=== PATIENT | male | born 1990 | race Caucasian/White ===

== ENCOUNTER 2018-05-26 12:54 | Emergency (ER) | payer MEDICAID ==
[2018-05-26 13:11] VITALS: BP 134/74
[2018-05-26] MEDS ORDERED: TETANUS/DIPHTHERIA/PERTUSSIS 0.5 ML SYRINGE IM ONE (14:22)
[2018-05-26] MEDS ORDERED: LIDOCAINE 2% 10 ML MDV SUBQ STA (14:55)
--- NOTE | 2018-05-26 15:15 | ED Physician Documentation ---
PD HPI SKIN - Stated complaint Stated Complaint: BIG TOE SWELLING - Chief complaint Chief Complaint: Wound - History obtained from History obtained from: Patient - History of Present Illness Timing - onset: How many days ago (5) Timing - duration: Days (5) Timing - details: Gradual onset Pain level max: 5 Pain level now: 4 Location: Other (R great toe) Quality / character: Painful, Swelling Improved by: Other (nothing) Worsened by (comment): COMMENT (walking) Associated symptoms: No: Fever, Myalgias, Joint pain, Headache, Facial swelling , Dyspnea, Abd pain, N/V/D, Urinary sx Contributing factors: No: Exposed to medication, Exposed to food, Exposed to soap / lotion, Exposed to Poison tio/oak, Insect bite /sting, Recent illness Similar symptoms before: Has not had sx before Recently seen: Not recently seen Review of Systems Constitutional: denies: Fever, Chills Skin: denies: Rash PD PAST MEDICAL HISTORY - Past Medical History Past Medical History: No - Past Surgical History Past Surgical History: No - Present Medications Home Medications: Ambulatory Orders Medication Instructions Recorded Confirmed Cephalexin [Keflex] 500 mg PO Q6H #28 capsule 05/26/18 Sulfamethox/Trimeth 800/160 1 each PO BID #14 tablet 05/26/18 [Bactrim Ds 800/160] - Allergies Allergies/Adverse Reactions: Allergies Allergy/AdvReac Type Severity Reaction Status Date / Time No Known Drug Allergies Allergy Verified 05/26/18 13:11 - Social History Does the pt smoke?: No Smoking Status: Never smoker - Immunizations Immunizations are current?: No Immunizations: TDAP >10years/unknown PD ED PE NORMAL - Vitals Vital signs reviewed: Yes - General General: Alert and oriented X 3, No acute distress - Derm Derm: Warm and dry - Extremities Extremities: Other (R great toe, swelling, erythema, fluctance over the plantar aspect of the R great toe.) - Neuro Neuro: Alert and oriented X 3 Results - Vitals Vitals: Oxygen O2 Source Room air - Labs Labs: Microbiology 05/26/18 15:10 Wound Culture - Final Abscess Beta Hemolytic Strep Group G Procedures - Abscess I&D (location) R great toe Preparation: Confirmed with ultrasound, Chlorhexadine, Alcohol, Lidocaine 2 % ( digital block.) Incision: Incised with scalpel, Purulent drainage Other: Pt tolerated well, Dressing applied, Antibiotic prescribed PD MEDICAL DECISION MAKING - ED course Complexity details: considered differential, d/w patient ED course: Patient is a 27-year-old male with a abscess to the right great toe. This was incised and drained. There is cellulitis as well and will place on antibiotics. Patient counseled regarding signs and symptoms for which I believe and urgent re-evaluation would be necessary. Patient with good understanding of and agreement to plan and is comfortable going home at this time This document was made in part using voice recognition software. While efforts are made to proofread this document, sound alike and grammatical errors may occur. - Sepsis Event Vital Signs: Oxygen O2 Source Room air Departure - Departure Disposition: Home, Self Care Clinical Impression: Abscess of great toe, right Condition: Good Instructions: ED Abscess IandD Follow-Up: your,doctor in 3 days for wound check [Other] Prescriptions: Cephalexin [Keflex] 500 mg PO Q6H #28 capsule Sulfamethox/Trimeth 800/160 [Bactrim Ds 800/160] 1 each PO BID #14 tablet Comments: Take all antibiotics until gone. Return if you worsen. You should follow-up with your doctor in 3 days for a wound check. You can use Motrin or Tylenol as needed for pain. Discharge Date/Time: 05/26/18 15:40
== END 2018-05-26 15:40 | disposition home or self-care (01) ==
LOC: ED 12:54
DX: L02.611 Cutaneous abscess of right foot (principal); L03.031 Cellulitis of right toe
CPT/HCPCS: 10060; 87070; 87205; 90471; 99283

== ENCOUNTER 2021-02-04 18:12 | Emergency (ER) | payer MEDICAID ==
[2021-02-04 18:23] VITALS: BP 164/97
[2021-02-04] MEDS ORDERED: IBUPROFEN 800 MG TABLET PO STA (18:42)
--- NOTE | 2021-02-04 18:44 | ED Physician Documentation ---
PD HPI BACK PAIN - Stated complaint Stated Complaint: BACK PX - Chief complaint Chief Complaint: Back Pain - History obtained from History obtained from: Patient - Additional information Additional information: 30-year-old gentleman who has a long history of back issues and spasms. Over the last 5 days after doing some heavy work around his property developed severe midline and right low thoracic back pain. It is actually somewhat better now with stretching. But it got to the point where he could not get out of bed for several days. He denies weakness, numbness, tingling, saddle anesthesia, incontinence, or fevers. Review of Systems Constitutional: denies: Fever, Chills Throat: reports: Reviewed and negative Cardiac: reports: Reviewed and negative Respiratory: reports: Reviewed and negative PD PAST MEDICAL HISTORY - Past Medical History Past Medical History: Yes Cardiovascular: None Respiratory: None Neuro: None Endocrine/Autoimmune: None GI: None : None HEENT: None Psych: None Musculoskeletal: Chronic back pain Derm: None - Past Surgical History Past Surgical History: No - Present Medications Home Medications: Ambulatory Orders Medication Instructions Recorded Confirmed Cyclobenzaprine [Flexeril] 10 mg PO TID PRN #20 tablet 02/04/21 HYDROcod/ACETAM 5/325 [[place] 5/325] 1 - 2 tab PO Q6H PRN #10 tablet 02/04/21 Ibuprofen [Motrin] 800 mg PO Q8H PRN #30 tablet 02/04/21 - Allergies Allergies/Adverse Reactions: Allergies Allergy/AdvReac Type Severity Reaction Status Date / Time No Known Drug Allergies Allergy Verified 02/04/21 18:18 - Social History Does the pt smoke?: No Smoking Status: Never smoker Does the pt drink ETOH?: Yes ETOH Use: Liquor Does the pt have substance abuse?: Yes Substance Use and Type: Marijuana - Immunizations Immunizations are current?: Yes Immunizations: TDAP >10years/unknown PD ED PE NORMAL - Vitals Vital signs reviewed: Yes - General General: Alert and oriented X 3, No acute distress - HEENT HEENT: PERRL, EOMI - Neck Neck: Supple, no meningeal sign, No bony TTP - Back Back: Other (Muscular tenderness of the low parathoracic spinal muscles on the right.) - Extremities Extremities: Other (The patient has equal and normal Achilles and patellar reflexes bilaterally. Normal sensation in all areas of the legs. Patient denies saddle anesthesia. Normal strength in flexion-extension at the ankles, knees, and flexion of the hips.) - Neuro Neuro: Alert and oriented X 3, Normal speech Results - Vitals Vitals: Vital Signs - 24 hr 02/04/21 18:19 Temperature 36.5 C Heart Rate 78 Respiratory 18 Rate Blood Pressure 164/97 H O2 Saturation 98 Oxygen O2 Source Room air PD MEDICAL DECISION MAKING - ED course ED course: This patient has seemingly uncomplicated musculoskeletal back pain. The patient has no "red flags." Specifically denies IV drug use, fevers, incontinence, saddle anesthesia. Spinal epidural abscess was considered, given that the patient has no fever, is not diabetic, has no spinal tenderness, does not use IV drugs, and has no bilateral neurologic symptoms, the diagnosis of spinal epidural abscess is considered exceedingly unlikely. Departure - Departure Disposition: 01 Home, Self Care Clinical Impression: Back pain Qualifiers: Back pain location: thoracic back pain Chronicity: acute Back pain laterality: right Qualified Code(s): M54.6 - Pain in thoracic spine Condition: Good Record reviewed to determine appropriate education?: Yes Instructions: ED Neck Back Pain General Prescriptions: Cyclobenzaprine [Flexeril] 10 mg PO TID PRN #20 tablet PRN Reason: Spasms Ibuprofen [Motrin] 800 mg PO Q8H PRN #30 tablet PRN Reason: PAIN &/OR FEVER HYDROcod/ACETAM 5/325 [[place] 5/325] 1 - 2 tab PO Q6H PRN #10 tablet PRN Reason: Pain Comments: Call your doctor to arrange a follow-up appointment, make the next available appointment. In the interim, return anytime if worse or if new symptoms develop.
== END 2021-02-04 19:00 | disposition home or self-care (01) ==
LOC: ED 18:12
DX: M54.6 Pain in thoracic spine (principal)
CPT/HCPCS: 99283; 99284; A9270

== ENCOUNTER 2021-02-16 11:37 | Emergency (ER) | payer MEDICAID ==
[2021-02-16 11:42] VITALS: BP 157/102
[2021-02-16] MEDS ORDERED: DEXAMETHASONE 10 MG/ML VIAL PO STA (12:36)
[2021-02-16] MEDS ORDERED: CHERRY SYRUP 10 ML UDC PO ONE (12:36)
[2021-02-16] MEDS ORDERED: KETOROLAC 60 MG/2 ML VIAL IM STA (12:36)
--- NOTE | 2021-02-16 12:51 | ED Physician Documentation ---
PD HPI BACK PAIN - Stated complaint Stated Complaint: BACK PX - Chief complaint Chief Complaint: Back Pain - History obtained from History obtained from: Patient - History of Present Illness Timing - onset: How many months ago (4) Timing - duration: Months Timing - details: Gradual onset, Still present, Waxing and waning Location: Lower, Right Quality: Pain, Spasm, Sharp, Similar to prior episodes Associated symptoms: No: Fever, Weakness, Numbness, Incontinent of urine, Unable to urinate, Hematuria, Incontinent of stool Improves with: Rest, Ice, Position, Meds Worsened by: Movement Similar symptoms before: Diagnosis (lumbar spasm) Recently seen: Not recently seen - Additional information Additional information: Previously well 30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 He has previously had physical therapy and had improvement with that about 10 years ago. He has been using ice, heat, stretching, ibuprofen, Flexeril, and [place]. He finds some improvement with his sleep using the Flexeril and he has not taken much of the [place]. Review of Systems Constitutional: denies: Fever Eyes: denies: Decreased vision Ears: denies: Ear pain Nose: denies: Congestion Throat: denies: Sore throat Cardiac: denies: Chest pain / pressure, Palpitations Respiratory: denies: Dyspnea, Cough GI: denies: Abdominal Pain, Nausea, Vomiting : denies: Dysuria, Frequency Skin: denies: Rash Musculoskeletal: reports: Back pain. denies: Neck pain, Extremity pain PD PAST MEDICAL HISTORY - Past Medical History Past Medical History: Yes Cardiovascular: None Respiratory: None Neuro: None Endocrine/Autoimmune: None GI: None : None HEENT: None Psych: None Musculoskeletal: Chronic back pain Derm: None - Past Surgical History Past Surgical History: No - Present Medications Home Medications: Ambulatory Orders Medication Instructions Recorded Confirmed Cyclobenzaprine [Flexeril] 10 mg PO TID PRN #20 tablet 02/04/21 02/16/21 HYDROcod/ACETAM 5/325 [[place] 5/325] 1 - 2 tab PO Q6H PRN #10 tablet 02/04/21 02/16/21 Ibuprofen [Motrin] 800 mg PO Q8H PRN #30 tablet 02/04/21 02/16/21 Cyclobenzaprine [Flexeril] 10 mg PO TID PRN #20 tablet 02/16/21 - Allergies Allergies/Adverse Reactions: Allergies Allergy/AdvReac Type Severity Reaction Status Date / Time No Known Drug Allergies Allergy Verified 02/16/21 11:41 - Social History Does the pt smoke?: No Smoking Status: Never smoker Does the pt drink ETOH?: Yes Does the pt have substance abuse?: Yes - Immunizations Immunizations are current?: Yes Immunizations: TDAP >10years/unknown - POLST Patient has POLST: No PD ED PE NORMAL - Vitals Vital signs reviewed: Yes (hypertensive) - General General: Alert and oriented X 3, No acute distress, Well developed/nourished - HEENT HEENT: Atraumatic, PERRL, EOMI - Neck Neck: Supple, no meningeal sign, No bony TTP - Respiratory Respiratory: No respiratory distress - Back Back: No CVA TTP, No spinal TTP, Other (There is tenderness to the paraspinous muscles of the lumbar spine on the right side. There is midline tenderness that is mild but present. ) - Derm Derm: Normal color, Warm and dry, No rash - Extremities Extremities: No deformity, No edema - Neuro Neuro: Alert and oriented X 3, manager publishing 2-12 intact, No motor deficit, No sensory deficit, Normal speech Eye Opening: Spontaneous Motor: Obeys Commands Verbal: Oriented GCS Score: 15 - Psych Psych: Normal mood, Normal affect Results - Vitals Vitals: Vital Signs - 24 hr 02/16/21 11:39 Temperature 36.2 C L Heart Rate 79 Respiratory 20 Rate Blood Pressure 157/102 H O2 Saturation 98 Oxygen O2 Source Room air PD MEDICAL DECISION MAKING - ED course Complexity details: reviewed old records, considered differential, d/w patient ED course: 30 y/o male with persistent spasms does not appear to be in distress and does not appear to have much trouble moving about. He is administered PO decadron and IM toradal and we will refill his flexeril and encourage him to stop the heating pack. He indicates he is drinking about a gallon a day of water. He is interested in physical therapy and wants a referral. He has a PMD that he will see in about 2 weeks. Departure - Departure Disposition: 01 Home, Self Care Clinical Impression: Spasm of back muscles Condition: Stable Instructions: ED Spasm Back No Trauma Follow-Up: Your, doctor [Other] Prescriptions: Cyclobenzaprine [Flexeril] 10 mg PO TID PRN #20 tablet PRN Reason: Spasms
== END 2021-02-16 13:35 | disposition home or self-care (01) ==
LOC: ED 11:37
DX: M62.830 Muscle spasm of back (principal)
CPT/HCPCS: 96372; 99283; 99284; A9270

== ENCOUNTER 2021-03-19 12:19 | Outpatient (CLI) | payer MEDICAID ==
--- NOTE | 2021-03-19 15:13 | XRAY Report ---
PROCEDURE: Lumbar Spine Complete INDICATIONS: CHRONIC LOW BACK PX TECHNIQUE: 4 views of the lumbar spine were acquired. COMPARISON: X-ray thoracic spine 03/19/2021 FINDINGS: Bones: 5 [id number] vertebrae are present. There is trace retrolisthesis of L2 on L3, L3 on L4 , L4-L5, L5 on S1. Mild disc space narrowing is present at L5-S1. No vertebral body compression frac tures. No suspicious bony lesions. Mild foraminal narrowing is present at L5-S1. Soft tissues: Overlying bowel gas pattern is normal. No suspicious soft tissue calcifications. IMPRESSION: Degenerative changes most notable at L5-S1. As clinically indicated, MRI may be obtained for further evaluation of foraminal narrowing. Reviewed by: Emelia Connors MD on 03/19/2021 3:11 PM PDT Approved by: Emelia Connors MD on 03/19/2021 3:11 PM PDT Station ID: [id number]
--- NOTE | 2021-03-19 15:14 | XRAY Report ---
PROCEDURE: Thoracic Spine 3 View INDICATIONS: THORACIC BACK PX TECHNIQUE: 3 views of the thoracic spine were acquired. COMPARISON: None. FINDINGS: Bones: No fractures or dislocations. No suspicious bony lesions. 12 pairs of ribs are noted, and a ppear intact where visualized. Multilevel degenerative disc space narrowing is present. Soft tissues: No paravertebral stripe thickening. IMPRESSION: Degenerative disc space narrowing. Reviewed by: Emelia Connors MD on 03/19/2021 3:13 PM PDT Approved by: Emelia Connors MD on 03/19/2021 3:13 PM PDT Station ID: [id number]
== END 2021-03-19 12:20 | disposition home or self-care (01) ==
LOC: DI.N 12:19
PROVIDERS: ATTEND Physician Assistant
DX: M43.17 Spondylolisthesis, lumbosacral region (principal); M48.07 Spinal stenosis, lumbosacral region; M51.37 Other intervertebral disc degeneration, lumbosacral region; M51.34 Other intervertebral disc degeneration, thoracic region

== ENCOUNTER 2021-09-22 01:36 | Outpatient (CLI) | payer MEDICAID, OTHER | END 2021-09-22 01:37 | disposition critical access hospital (66) | LOC: EMS 01:36 | DX: Z04.1 Encounter for examination and observation following transport accident (principal); R51.9 Headache, unspecified; M54.2 Cervicalgia; M25.562 Pain in left knee; M25.561 Pain in right knee; R45.89 Other symptoms and signs involving emotional state | CPT/HCPCS: A0425; A0429; A0999 ==

== ENCOUNTER 2021-09-22 02:09 | Emergency (ER) | payer MEDICAID ==
[2021-09-22] MEDS ORDERED: TETANUS/DIPHTHERIA/PERTUSSIS 0.5 ML SYRINGE IM ONE (02:18)
[2021-09-22 02:38] LABS: BASOPHILS # (AUTO) 0.1 10^3/uL (0.0-0.1); BASOPHILS % (AUTO) 0.8 %; EOSINOPHILS # (AUTO) 0.3 10^3/uL (0.0-0.7); EOSINOPHILS % (AUTO) 3.6 %; HCT - HEMATOCRIT 44.5 % (42.0-52.0); HGB - HEMOGLOBIN 15.6 g/dL (14.0-18.0); LYMPHOCYTES # (AUTO) 2.5 10^3/uL (1.5-3.5); MEAN CORPUSCULAR HEMOGLOBIN 32.4 pg (27.0-31.0); MEAN CORPUSCULAR HGB CONC 35.1 g/dL (32.0-36.0); MEAN CORPUSCULAR VOLUME 92.5 fL (80.0-94.0); MONOCYTES # (AUTO) 0.5 10^3/uL (0.0-1.0); MONOCYTES % (AUTO) 7.5 %; NEUTROPHILS # (AUTO) 3.8 10^3/uL (1.5-6.6); NEUTROPHILS % (AUTO) 52.5 %; PLT - PLATELET COUNT 198 10^3/uL (130-450); RED BLOOD COUNT 4.81 10^6/uL (4.70-6.10); WHITE BLOOD COUNT 7.2 x10^3/uL (4.8-10.8)
[2021-09-22 02:48] LABS: ALBUMIN 4.8 g/dL (3.2-5.5); ALBUMIN/GLOBULIN RATIO 1.6 (1.0-2.2); BILIRUBIN,TOTAL 0.8 mg/dL (0.2-1.0); CALCIUM 9.2 mg/dL (8.5-10.3); CREATININE 0.8 mg/dL (0.6-1.2); ETOH - ETHANOL 187.6 mg/dL; POTASSIUM 3.4 mmol/L (3.5-5.0); TOTAL PROTEIN 7.8 g/dL (6.7-8.2)
[2021-09-22] MEDS ORDERED: ACETAMINOPHEN 325 MG TABLET PO STA (03:44)
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
[2021-09-22] MEDS ORDERED: cephALEXin 250 MG CAPSULE PO STA (04:51)
[2021-09-22] MEDS ORDERED: BACITRACIN ZINC OINT 1 PACKET TOP STA (05:06)
[2021-09-22 05:33] LABS: MUDS CUTOFF CONCENTRATIONS CUTOFF CONC BELOW:
[2021-09-22 05:34] LABS: BILIRUBIN,URINE NEGATIVE (NEGATIVE); GLUCOSE, URINE (UA) NEGATIVE (NEGATIVE); KETONES,URINE (UA) TRACE mg/dL (NEGATIVE); LEUKOCYTE ESTERASE, URINE NEGATIVE (NEGATIVE); NITRITE,URINE NEGATIVE (NEGATIVE); OCCULT BLOOD,URINE NEGATIVE (NEGATIVE); PROTEIN,URINE NEGATIVE (NEGATIVE); UROBILINOGEN,URINE 0.2 (NORMAL) E.U./dL (NORMAL)
[2021-09-22 05:35] LABS: CLARITY,URINE CLEAR (CLEAR)
[2021-09-22 05:48] LABS: AMPHETAMINE SCREEN,URINE POSITIVE (NEGATIVE); BARBITURATE SCREEN,UR NEGATIVE (NEGATIVE); BENZODIAZEPINES SCREEN, URINE NEGATIVE (NEGATIVE); COCAINE SCREEN URINE NEGATIVE (NEGATIVE); METHADONE SCREEN, URINE NEGATIVE (NEGATIVE); METHAMPHETAMINES SCREEN, URINE NEGATIVE (NEGATIVE); OPIATE SCREEN, URINE NEGATIVE (NEGATIVE); OXYCODONE SCREEN, URINE NEGATIVE (NEGATIVE); PROPOXYPHENE SCREEN, URINE NEGATIVE (NEGATIVE); THC CANNABINOID SCREEN, URINE POSITIVE (NEGATIVE); TRICYCLIC ANTIDEPRESSANT,URINE NEGATIVE (NEGATIVE)
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
[2021-09-22 07:53] VITALS: BP 146/85
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
--- NOTE | 2021-09-22 07:56 | CT Report ---
PROCEDURE: HEAD WO INDICATIONS: f/u CT head TECHNIQUE: Noncontrast 4.5 mm thick angled axial sections acquired from the foramen magnum to the vertex. For r adiation dose reduction, the following was used: automated exposure control, adjustment of mA and/or kV according to patient size. COMPARISON: CT of the head from earlier today at 2:38 AM. FINDINGS: Image quality: Excellent. CSF spaces: Basal cisterns are patent. No extra-axial fluid collections. Ventricles are normal in size and shape. Brain: No midline shift. No intracranial mass. Valenzuela-white matter interface is normal. A right par afalcine subdural hematoma versus prominent cerebral vein measuring 1.6 mm in maximal thickness is un changed compared to the prior study. Skull and face: Calvarium and visualized facial bones are intact, without suspicious lesions. Sinuses: Visualized sinuses and mastoids are clear. IMPRESSION: 1. Right parafalcine subdural hematoma versus prominent cerebral vein is unchanged. 2. No other acute abnormality. 3. Previously seen glass in the scalp has resolved. Reviewed by: Andrez He on 09/22/2021 7:55 AM PDT Approved by: Andrez He on 09/22/2021 7:55 AM PDT Station ID: [id number]
== END 2021-09-22 08:00 | disposition home or self-care (01) ==
LOC: EDUNIT# → ED 02:09
DX: F10.129 Alcohol abuse with intoxication, unspecified (principal); S01.02XA Laceration with foreign body of scalp, initial encounter; I62.9 Nontraumatic intracranial hemorrhage, unspecified; V49.9XXA Car occupant (driver) (passenger) injured in unspecified traffic accident, initial encounter; Z23 Encounter for immunization
CPT/HCPCS: 36415; 70450; 71045; 72125; 72170; 80053; 80306; 80320; 81003; 83690; 85025; 90471; 90715; 99283; 99284; A9270; 81001; 87086

== ENCOUNTER 2022-01-09 07:24 | Outpatient (CLI) | payer MEDICAID ==
--- NOTE | 2022-01-09 09:09 | MRI Report ---
PROCEDURE: Brain W/O INDICATIONS: CONCUSSION W/ LOC TECHNIQUE: Noncontrast axial T1 spin echo, axial T2 fast spin echo, sagittal and axial FLAIR, coronal T2 fast sp in echo, axial gradient echo, axial diffusion and ADC through the brain. COMPARISON: CT dated 09/22/2021 FINDINGS: Image quality: Excellent. CSF Spaces: Basal cisterns are patent. No extra-axial fluid collections. Ventricles are normal in size and shape. Brain: No intracranial masses or hemorrhage. Valenzuela/white matter interface is normal. Brainstem appe ars normal. Diffusion-weighted images demonstrate no acute ischemic insult. No chronic ischemic ins ults. Normal intravascular flow voids are present. Skull and face: Calvarium has normal marrow signal. Orbits appear normal. Sinuses: There is mild mucosal thickening within the bilateral frontal, ethmoid, sphenoid, and maxill paula sinuses. Mastoids are clear. IMPRESSION: 1. No acute process. 2. No recent infarct. 3. No acute intracranial hemorrhage. 4. Sinus disease. Reviewed by: Amairani Mendenhall MD on 01/09/2022 9:07 AM PST Approved by: Amairani Mendenhall MD on 01/09/2022 9:07 AM PST Station ID: [id number]
== END 2022-01-09 07:25 | disposition home or self-care (01) ==
LOC: DI 07:24
PROVIDERS: ATTEND Internal Medicine
DX: H53.9 Unspecified visual disturbance (principal); S06.0X1S Concussion with loss of consciousness of 30 minutes or less, sequela; J32.9 Chronic sinusitis, unspecified

== ENCOUNTER 2024-05-20 11:13 | Outpatient (CLI) | payer MEDICAID ==
--- NOTE | 2024-05-20 11:59 | Sleep Patient Instructions ---
Sleep Center Visit Summary - Patient Visit Information Reason for Visit: Initial consult for evaluation of sleep disordered breathing and other sleep issues. - Patient Instructions Instructions Attached: Sleep Study Additional Instructions: You will be completing a sleep study, either an in-lab polysomnography (PSG) or home sleep study (HST). You will follow-up in the sleep care office after the sleep study is completed to hear the results and talk about therapy, if needed. You will be called by our office staff to schedule this appointment, but you may contact us with any questions. - Clinic Information Contact: [facility] [address] [place] [email or web address] T: [phone]
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
[2024-05-20 12:16] VITALS: BP 149/95; O2SAT 98
== END 2024-05-20 11:14 | disposition home or self-care (01) ==
LOC: SC 11:13
PROVIDERS: ATTEND Nurse Practitioner Family
DX: G47.8 Other sleep disorders (principal); R06.83 Snoring; R51.9 Headache, unspecified; R41.89 Other symptoms and signs involving cognitive functions and awareness; E66.3 Overweight; Z68.29 Body mass index [BMI] 29.0-29.9, adult; Z87.820 Personal history of traumatic brain injury
CPT/HCPCS: 99203; 99212

== ENCOUNTER 2024-06-14 20:35 | Outpatient (CLI) | payer MEDICAID | END 2024-06-14 20:36 | disposition home or self-care (01) | LOC: SC 20:35 | PROVIDERS: ATTEND Nurse Practitioner Family | DX: G47.61 Periodic limb movement disorder (principal) | CPT/HCPCS: 95810 ==

== ENCOUNTER 2024-07-08 15:59 | Outpatient (CLI) | payer MEDICAID ==
--- NOTE | 2024-07-08 16:17 | Sleep Patient Instructions ---
Sleep Center Visit Summary - Patient Visit Information Reason for Visit: Sleep study follow-up - Patient Instructions Additional Instructions: Your sleep study today was negative for significant sleep disordered breathing. You are found to have mild periodic leg movements of sleep which contributed to fragmentation of your sleep. You may follow-up with your primary care doctor for further evaluation of this finding. You were found to have episodes of snoring. There are different ways to control snoring including weight loss, oral devices made by a dentist or surgical options through ENT specialist. You should not use oral devices that do not fit properly because they can affect your bite. You should also check insurance coverage of oral devices for snoring because they may not be cover well. You may obtain a referral to an ENT specialist through your primary provider. Follow-up as needed. - Clinic Information Contact: [facility] [address] [place] [email or web address] T: [phone]
--- NOTE | 2024-07-08 16:19 | SLEEP CARE CONSULTATION ---
Information from patient questionnaire entered by Gracie Nava. I have reviewed and concur with the information entered by Gracie Nava. This document represents the service I personally performed and the decisions made by , Sravani Connelly ARNP. History of Present Illness Service Date and Time: 07/08/2024 155 Initial [place] Sleepiness Scale score: 7 Current [place] Sleepiness Scale score: 7 (07/08/24) Additional HPI information: EVIE NEGRETE returns for follow up and results of the recently performed polysomnography on 06/14/24. The patient was informed of the following findings: No significant sleep disordered breathing with an average AHI of 0.5 and arash oxygen saturation of 91%. He had mild PLMs contributing to sleep fragmentation. I explained the pathophysiology behind obstructive sleep apnea. Patient does not have sleep apnea and was advised how weight gain could increase the risk of developing sleep apnea in the future. I strongly encouraged the patient to lose weight. Patient has light snoring. Snoring can be reduced by weight loss. Weight loss is best achieved with diet consult. Patient instructed to contact PCP for referral. Snoring can also be treated with an oral appliance from a dentist. Advised to check insurance coverage. In addition, an ENT evaluation can be do to see if other treatment is indicated. Patient counseled not drink alcohol less than 4 hours before bedtime as it can increase snoring and apnea. Patient was cautioned about risks of drowsy driving until sleepiness symptoms resolve. Patient denies drowsy driving. Sleep Study - Results Type of Sleep Study: Polysomnography (COMPLETED 06/14/24) Prior sleep studies: No Polysomnography/Home Sleep Study results: IMPRESSION: The quality of the study is good. The patient had minimally reduced sleep efficiency. The sleep architecture was abnormal for sleep fragmentation and reduced amount of time spent in REM and slow wave sleep (N3). Respiratory monitoring showed no significant sleep disordered breathing (AHI = 0.5) or hypoxia (arash oxygen saturation of 91%). The patient did not sleep supine during this study. Snore was infrequent and light in intensity. There was mild periodic leg movement of sleep contributing to the sleep fragmentation. Cardiac rhythm was normal sinus rhythm with occasional premature ventricular contractions No abnormal behavior (parasomnia) observed during the night. CONCLUSIONS and RECOMMENDATIONS: 1. Periodic leg movement (ICD G47.61), mild, treatment may be indicated. Clin ical correlation advised. 2. Because the patient did not sleep supine during this study, significant sleep disordered breathing during supine sleep cannot be ruled out. Allergies and Home Medications Known drug allergies: No Drug allergies reviewed: Yes Home medication list reviewed: Yes (no changes) Allergy and home medication list: Allergies No Known Drug Allergies Allergy (Verified 07/08/24 15:58) Review of Systems Review of systems same as previous: Yes (no changes) Physical Exam Vital signs obtained and entered by: GRACIE Cat MA Blood Pressure: 144/97 Heart Rate: 98 O2 Saturation: 99 Height: 6 ft 1.5 in Weight: 221 lb 12.8 oz Body Mass Index: 28.8 BMI Classification: Overweight Impression and Plan 1. Periodic limb movement, mild, that did contribute to fragmentation of patients sleep. Periodic limb movement of sleep (PLMS) is characterized by episodes of repetitive limb movements that occur during sleep and usually involve the lower limbs. The etiology is unknown. Patient was advised that further evaluation may be indicated. 2. Snoring but no significant sleep disordered breathing. Patient advised that often weight loss will reduce snoring as well as apnea risk. An oral appliance can also be used for snoring. This would require a dental consultation. Patient cautioned not to use other online appliances as can cause bite issues. Patient is advised to check if insurance will cover. An ENT consult can also be helpful to determine if any other treatment is an option. 3. Overweight, unspecified. Currently patients BMI is 28.8. Obesity increases the risk of apnea, CPAP pressure requirements and overall health risks especially cardiovascular and diabetes. Thus patient is advised to lose weight. * Attempt to lose weight * Avoid alcohol consumption near bedtime * The patient is cautioned about driving until sleepiness is completely resolved. * Return as needed for follow up. Counseling Topics: Weight loss health impact Follow up with Sleep Care in: as needed Visit Type: In Office Time Spent with Patient (minutes): 12 Provider Statement: I spent 100% of the Face to Face Visit with the patient with greater than 50% spent counseling the patient and coordination of care.
[2024-07-08 16:22] VITALS: BP 144/97; O2SAT 99
== END 2024-07-08 16:00 | disposition home or self-care (01) ==
LOC: SC 15:59
PROVIDERS: ATTEND Nurse Practitioner Family
DX: G47.61 Periodic limb movement disorder (principal); R06.83 Snoring; E66.3 Overweight; Z68.28 Body mass index [BMI] 28.0-28.9, adult
CPT/HCPCS: 99212